=== PATIENT | female | born 1965 | race Two or more races ===

== ENCOUNTER 2022-08-15 11:45 | Inpatient (IN) | payer OTHER ==
[~2022-08-15] VITALS: Ht 154.9 cm; Wt 64.9 kg
[2022-08-15] MEDS ORDERED: TOPROL XL50 M1 PO (13:57)
[2022-08-15] MEDS ORDERED: SYNTHROID125 MCG PO (13:57)
[2022-08-15] MEDS ORDERED: DIOVAN320 MG PO (13:57)
[2022-08-15] MEDS ORDERED: FAMOTIDINE40 MG PO (13:58)
[2022-08-15] MEDS ORDERED: CRESTOR40 MG PO (13:58)
[2022-08-15] MEDS ORDERED: NORVASC10 MG PO (13:58)
[2022-08-15] MEDS ORDERED: [UNRECOGNIZED DRUG - OTHER] PO (13:59)
[2022-08-15] MEDS ORDERED: ZYLOPRIM100 MG PO (13:59)
[2022-08-15] MEDS ORDERED: METFORMIN HCL500 M3 PO (13:59)
[2022-08-15] MEDS ORDERED: DEXILANT60 MG PO (14:00)
[2022-08-21] MEDS ORDERED: VALSARTAN-HCTZ1 EAC4 (08:36)
[2022-08-21] MEDS ORDERED: AMITRIPTYLINE H50 MG (08:36)
[2022-08-21] MEDS ORDERED: LORATADINE10 MG (08:36)
[2022-08-21] MEDS ORDERED: FLONASE16 GM (08:36)
[2022-08-21] MEDS ORDERED: FENOFIBRIC ACID45 MG (08:36)
[2022-08-22] MEDS ORDERED: NEURONTIN300 MG PO (08:56)
[2022-08-22] MEDS ORDERED: INTESTINEX680 M1 PO (08:56)
== END 2022-08-22 15:10 | disposition home or self-care (01) | DRG 331 ==
LOC: O/R 08-18 06:28 → SURH 08-18 06:28
PROVIDERS: ADMIT Surgery; ATTEND Surgery
PROC: 0DBP4ZZ Excision of Rectum, Percutaneous Endoscopic Approach (ICD-10-PCS; 2022-08-18)
PROC: 0DBU4ZZ Excision of Omentum, Percutaneous Endoscopic Approach (ICD-10-PCS; 2022-08-18)
PROC: 0DJD8ZZ Inspection of Lower Intestinal Tract, Via Natural or Artificial Opening Endoscopic (ICD-10-PCS; 2022-08-18)
PROC: 0DTN4ZZ Resection of Sigmoid Colon, Percutaneous Endoscopic Approach (ICD-10-PCS; principal; 2022-08-18 07:00)
DX: K57.30 Diverticulosis of large intestine without perforation or abscess without bleeding (principal); R19.4 Change in bowel habit; N73.6 Female pelvic peritoneal adhesions (postinfective); N99.4 Postprocedural pelvic peritoneal adhesions; I12.9 Hypertensive chronic kidney disease with stage 1 through stage 4 chronic kidney disease, or unspecified chronic kidney disease; E11.22 Type 2 diabetes mellitus with diabetic chronic kidney disease; N18.30 Chronic kidney disease, stage 3 unspecified; Z79.4 Long term (current) use of insulin; Z20.822 Contact with and (suspected) exposure to COVID-19